=== PATIENT | male | born 1960 ===

== ENCOUNTER 2018-08-16 07:21 | Day surgery (SDC) | payer OTHER ==
[2018-08-15 12:13] VITALS: BMI 30.7
[2018-08-16] MEDS ORDERED: Lactated Ringer's 1,000 ML IV ONE (08:20)
[2018-08-16] MEDS ORDERED: Lidocaine 2% PF (10 ml) Amp ONE (08:49)
[2018-08-16] MEDS ORDERED: EPINEPHrine 1 mg/ml (1:1000) Inj ONE ×2 (08:50→16:50)
[2018-08-16] MEDS ORDERED: Bacitracin Ointment 30 GM TUBE ONE (08:51)
--- NOTE | 2018-08-16 09:44 | CP.SDSHP ---
Same Day Surgery H & P - History Proposed Procedure: Right shoulder arthroscopy Pre-Op Diagnosis: Right shoulder rotator cuff tear - Previous Medical/Surgical History Cardiac: Hypertension Pain: 6.Severe Pain Comments: Kidney stones Previous Surgical History: Kidney stone removal - Allergies Allergies: Allergies No Known Allergies Allergy (Verified 08/15/18 12:13) - Current Medications Current Medications: Aspirin, metoprolol - Physical Exam General Appearance: NAD Vital Signs: Vital Signs 08/16/18 08/16/18 08:07 08:17 Temperature 98.7 F Pulse Rate 51 L 51 L Respiratory 18 Rate Blood Pressure 131/78 O2 Sat by Pulse 98 Oximetry Mental Status: Alert & Oriented x3 Neuro: WNL Heart: WNL Lungs: WNL GI: WNL Social History: Alcohol (socially) - {Optional Preform as Required} Abdomen: WNL Integument: WNL Ortho: Other (Restricted ROM 2nd to pain, diffuse tenderness, gross neurovascularly intact, motor grossly intact, compartments soft NT) ENT: WNL - Impression Impression: Patient is a RHD 57M who presents for elective R shoulder arthroscopy. The patient has had chronic right shoulder pain for the past 2 years which has progressed and limited his daily activities such as lifting overhead and lifting object. He has failed conservative management and has elected for surgical intervention. Risks/benefits/alternatives were explained to the patient who agrees to proceed with above procedure. Pt. Evaluated Today:Candidate for Anesthesia & Procedure: Yes - Date & Time Date: 08/16/18 Time: 09:45 Short Stay Discharge - Short Stay Discharge Admitting Diagnosis/Reason for Visit: M75.101,M25.611,M75.31 Disposition: HOME/ ROUTINE Medications: oxyCODONE/Acetaminophen [Percocet 5/325 mg Tab] 1 - 2 ea PO Q4 PRN #30 tab PRN Reason: Pain, Moderate (4-7) Referrals: Rocky Tong III, MD [Primary Care Provider] -
[2018-08-16] MEDS ORDERED: Ropivacaine 0.5% 30ML IV ONE (11:08)
[2018-08-16] MEDS ORDERED: Rocuronium 10 mg/ml (5 ml) ONE (11:10)
[2018-08-16] MEDS ORDERED: Propofol 10 mg/ml Inj (20 ML) ONE (11:10)
[2018-08-16] MEDS ORDERED: Midazolam 2 MG/2 ML VIAL ONE (11:10)
[2018-08-16] MEDS ORDERED: Succinylcholine 200 mg/10 ml Inj IV ONE (11:10)
[2018-08-16] MEDS ORDERED: Neostigmine 1:1000 (1 mg/ml) Inj ONE (11:11)
[2018-08-16] MEDS ORDERED: Lidocaine 4% (Laryng-O-Jet) Kit MM ONE (11:11)
[2018-08-16] MEDS ORDERED: Lidocaine 2% MPF (5 ml) Inj ONE (13:21)
[2018-08-16] MEDS ORDERED: Oxycodone/Acetaminophen 5/325 mg Tab PO PRN (15:58)
[2018-08-16] MEDS ORDERED: Lactated Ringer's 1,000 ML IV SCH ×2 (16:00→19:15)
[2018-08-16] MEDS ORDERED: ePHEDrine 50 mg/ml Inj ONE (16:53)
[2018-08-16] MEDS ORDERED: Dexamethasone 4 mg/1 ml ONE (17:44)
[2018-08-16] MEDS ORDERED: Phenylephrine 10 mg/ml Inj ONE (17:47)
[2018-08-16] MEDS ORDERED: methylPREDNISolone Depo 80 mg/ml Inj IM ONE (18:30)
[2018-08-16] MEDS ORDERED: methylPREDNISolone Depo 80 mg/ml Inj ONE (18:32)
[2018-08-16] MEDS ORDERED: MethylPREDNISolone Depo 40 mg/ml Inj ONE (18:32)
[2018-08-16] MEDS ORDERED: Bacitracin OINT 15GM TOP ONE (18:50)
[2018-08-16] MEDS ORDERED: Dexamethasone 4 mg/1 ml IVP PRN (19:09)
[2018-08-16] MEDS ORDERED: DiphenhydrAMINE 50 mg/ml Inj IVP PRN (19:09)
--- NOTE | 2018-08-16 19:12 | PCM.ANESB1 ---
Interscalene Block - Brachial Plexus Date of Procedure: 08/16/18 Anesthesiologist: Thuan Bills Pre-Procedure Diagnosis: R shoulder rotator cuff tear Post-Procedure Diagnosis: R shoulder rotator cuff tear Procedure Performed: Interscalene Block of Brachial Plexus Right - Procedure Interscalene Block of Brachial Plexus: This procedure was explained to the patient that it is for post-operative pain management. Consent was obtained after a thorough discussion with the patient regarding the benefits and possible complications of local anesthetic block of the Brachial Plexus at the Interscalene area. The patient was brought to the Operating Room and standard monitors were applied. Time out was held with the circulating nurse to confirm the correct surgery and appropriate block. After applying Oxygen by nasal cannula and administering IV Sedation, the patient's head was gently rotated away from the right operative shoulder and the anterior scalene groove was carefully palpated. The ultrasound transducer was then applied to the skin in the transverse plane and the brachial plexus was visualized lateral to the carotid artery and in between the anterior and middle scalene muscles. After identification,the anterior lateral portion of the neck was prepped with Chloroprep and Lidocaine 1% was injected subcutaneously for topical analgesia. At this point, a # 22 gauge Stimuplex 2 inches insulated needle was inserted into the interscalene groove and directed in a caudal and midline direction. The needle was inserted lateral to the ultrasound transducer in-plane towards the brachial plexus in a [id number] direction. Needle advancement was performed carefully under direct ultrasound visualization. Nerve stimulator was used and twitched of the affected extremity including the hand brachialis muscles, biceps and the deltoid was obtained at a current of 0.4 MA. After repeated negative aspiration,20cc of 0.5% ropivacaine was injected in 5cc aliquots. Under ultrasound guidance the local anesthetics were observed surrounding the roots of the brachial plexus. The needle was removed intact and sterile dressing was applied. The patient had stable vital signs, was conscious and in no apparent distress. The patient tolerated the interscalene block of the bracheal plexus well with stable vital signs and was prepared for subsequent surgery.
--- NOTE | 2018-08-16 21:56 | PCM.SURG1 ---
Surgeon's Initial Post Op Note - Surgeon's Notes Surgeon: Ran Fuel Technician: WESLEY Hernandez Type of Anesthesia: General Endo, Block Regional Anesthesia Administered By: Dr Gavin Bills Pre-Operative Diagnosis: painful R shoulder- grade 3 Rotator cuff tear Operative Findings: grade3 Rotator cuff teR. TEAR glenoid labrum. rupture gbideps tendon. A/C joint arthritis. subacromial impingemnt. efgef7xehgg/bursitis subacromial space Post-Operative Diagnosis: as above Operation Performed: Primary [id number] gr 3 rotator cuff. repair slap lesion. biceps tenotomy. partial distal claviculectomy. partial acromioplasty. arthroscopic lysisi of adhesions in subacromial space Specimen/Specimens Removed: bine bursa cartilage synovium Estimated Blood Loss: EBL {In ML}: 15 Blood Products Given: N/A Drains Used: No Drains Post-Op Condition: Good Date of Surgery/Procedure: 08/16/18 Time of Surgery/Procedure: 17:25 (time in room/anesthesia indcution time)
[2018-08-16 23:53] VITALS: BP 125/72; PULSE 88; RESP 20; TEMP 97.4; O2SAT 93
--- NOTE | 2018-08-17 18:34 | OP ---
PROCEDURE DATE: 08/16/2018 LOCATION: [facility]. PREOPERATIVE DIAGNOSES: 1. Painful shoulder, right. 2. Grade 3 rotator cuff tear, right shoulder. OPERATIVE FINDINGS: 1. Grade 3 tear of right rotator cuff. 2. Tear of glenoid labrum extending anterior to posterior root of the biceps tendon. 3. Rupture of biceps tendon. 4. AC joint arthritis. 5. Subacromial impingement. 6. Adhesions and bursitis in the subacromial space. SURGEON: Rocky Tong MD [employer]ADING VICE PRESIDENT: BABAK Snyder, certified registered nursing [employer]. TYPE OF ANESTHESIA: General endotracheal anesthesia with regional block. POSTOPERATIVE DIAGNOSES: 1. Painful shoulder, right. 2. Grade 3 rotator cuff tear, right shoulder. OPERATIONS PERFORMED: 1. Primary repair of grade 3 rotator cuff. 2. Repair of SLAP lesion. 3. Biceps tenotomy. 4. Partial distal claviculectomy. 5. Partial acromioplasty. 6. Arthroscopic lysis of adhesions and bursectomy in the subacromial space. SPECIMENS REMOVED: Bone, bursa, cartilage and synovium. BLOOD LOSS: Approximately 15 mL. BLOOD PRODUCTS: No blood products given. DRAINS: No drains. POSTOPERATIVE CONDITION: Stable. TIME OF PROCEDURE: 17:25. OPERATIVE INDICATION: Cruz Morales is a 57-year-old gentleman who has had persistent right shoulder pain for a long period of time. The patient had got an opinion for surgery in [place], he ignored it. The patient presented to [place]. He lives in and works for a [employer] in [place]. He can no longer withstand the discomfort. He is having difficulty with sleep. He has been refractory to conservative approach consisting of intra-articular injection, activity modification and therapy. Pros, cons, risks and benefits of surgical approach were discussed. The possibility of mechanical failure, infection, thromboembolic disease, possibility of secondary or tertiary surgery was discussed. The patient can no longer withstand the discomfort and wished the surgery to be accomplished. Informed consent had been accomplished from the patient in the presence of the culturally competent lost charge card clerk. Pros, cons, risks and benefits were discussed. Possibility of mechanical failure, infection, thromboembolic disease, secondary or tertiary surgery was discussed. OPERATIVE PROCEDURE: After having obtained informed consent, after having identified side, site and procedure and a critical pause/time-out after the satisfactory induction of the anesthetic, the patient identified as Cruz Dorsey, is in modified cano chair position. The right upper extremity was prepped and free draped in usual fashion for upper extremity surgery. The Arthrex shoulder positioner was employed. It should be noted that again informed consent had been obtained from the patient in the presence of his Congolese-speaking daughter whose Congolese is perfect and she is the culturally competent lost charge card clerk. The possibility of stiffness, mechanical failure, infection, thromboembolic disease, possibility of secondary or tertiary surgery was discussed. The patient can no longer withstand the discomfort and wished the surgery to be accomplished. OPERATIVE PROCEDURE: After the satisfactory induction of general endotracheal anesthesia and regional block by Dr. Thuan Bills, after having obtained informed consent in the above fashion, after having identified side, site and procedure and a critical pause/time-out after the satisfactory induction of the anesthetic, the patient identified as Cruz Dorsey in the modified cano chair position. The right upper extremity was prepped and free draped in usual fashion for upper extremity surgery. Topographic anatomy of the shoulder was marked, spine of the scapula, the lateral aspect of the acromion and the coracoid process. The joint was insufflated with 10 mL of 1% lidocaine without epinephrine using #11 blade followed by spreading, followed by introduction of blunt trocar, the arthroscope was introduced. Examination of the joint commences. There is found to be a marked synovitis and with injury to the biceps tendon. Triangulation was accomplished using #18 gauge spinal needle followed by #11 blade followed by spreading and introduction of blunt trocar. With the arthroscope posteriorly, the Wissinger kenneth was placed anteriorly and the cannula was introduced. With the arthroscope posteriorly, the cannula having been introduced anteriorly and great care was taken to control the flow, an extensive synovectomy of the glenohumeral joint was accomplished. The patient has marked synovitis. There was found to be a complete tear of the glenoid labrum extending anterior to posterior and to the root of the biceps tendon. At this point in time, the biceps was found to be severely damaged. With the arthroscope posteriorly using the 5.5 arthroscopic shaver, a biceps tenotomy was accomplished. With the arthroscope posteriorly, biceps tenotomy having been accomplished, the biceps is tenotomized and the biceps tendon was carefully debrided. This having been accomplished, attention was turned to the glenoid labral tear. The interval between the glenoid labrum and the bony glenoid was developed. This having been accomplished, the Lasso was used to gather the nitinol wire anteriorly and this was brought out the anterior portal. Drilling was accomplished at approximately 1 o'clock on the glenoid clock face and the drilling having been accomplished, the anchor was loaded with FiberTape after the FiberTape had been passed around the labrum. Please refer to the video photographs. This having been accomplished, the anchor having been loaded, the anchor was impacted and the labral tear is repaired. Extensive debridement of the glenohumeral joint was accomplished. The biceps is tenotomized. Great care was taken to smooth the remainder of the glenoid labrum. This having been accomplished, the arm was placed carefully in dependency, the arthroscope was placed in the subacromial space and triangulation was accomplished using #18 gauge spinal needle followed by #11 blade followed by spreading with the arthroscope posteriorly. There was found to be an extensive amount of adhesions in the subacromial space. There was marked bursitis and marked adhesions. With the arthroscope posteriorly, the Passport was introduced to the lateral portal and aggressive synovectomy, bursectomy and debridement of the subacromial space using the arthroscopic shaver was accomplished. The arthroscopic shaver having been employed, the partial bursectomy and lysis of adhesions was accomplished in the subacromial space. This was completed with the arthroscopic wand. This having been accomplished with the arthroscope posteriorly, arthroscopic wand was placed laterally and the soft tissue on the undersurface of the acromion and distal aspect of the clavicle was carefully debrided. With the arthroscope posteriorly, the soft tissue on the undersurface of the acromion was debrided as well as the undersurface of the clavicle. With the arthroscope posteriorly, careful debridement of the subacromial space was accomplished. Extensive debridement of the subacromial space and lysis of adhesions was accomplished. With the arthroscope posteriorly, careful bursectomy and lysis of adhesions having been accomplished, there was found to be a complete grade 3 tear of the rotator cuff. Please refer to the photographs. The cuff grasper was placed and the cuff was mobilized with a periosteum elevator. Hemostasis was controlled using the arthroscopic wand. This having been accomplished with the arthroscope posteriorly, two sets of sutures were placed in the rotator cuff, one anteriorly in an inverted V type fashion. The sutures were deployed with the scorpion and brought out laterally through the Passport and a secondary simple suture was placed further medially and that was brought out as well. With the arm in abduction and internal rotation, the self-tapping anchor was loaded. With the arm in abduction and rotation, the rotator cuff was cinched down to the anchor. The anchor was implanted in the area of the footprint and using the , the peak anchor was introduced into the humeral head. The position was found to be excellent. The exact same procedure was followed for the inverted V type repair, which was placed more laterally. This having been accomplished, the anchor was placed in the lateral aspect of the footprint with the arm in abduction and internal rotation. The repair was found to be excellent. Extensive bursectomy and lysis of adhesions in the subacromial space continues. Bleeding points were controlled with the arthroscopic wand. At this point with the arthroscope posteriorly using the arthroscopic bur, a partial acromioplasty was accomplished. Great care was taken to continue to remove all irritative bursa and adhesions in the subacromial space. Partial acromioplasty was carefully accomplished. At this point in time, the arthroscope was transferred mid laterally and from the anterior portal using the arthroscopic bur, a partial distal claviculectomy was accomplished using the arthroscopic bur to include the articular cartilage and approximately the distal centimeter of the clavicle. The arthroscope was placed now back posteriorly. Bleeding points were controlled using the arthroscopic wand. Using the arthroscopic bur, a partial distal claviculectomy and debridement of the articular cartilage on the lateral aspect of the clavicle was accomplished. Partial acromioplasty was completed, partial distal claviculectomy having been completed, the wound was thoroughly irrigated. Bleeding points were controlled with the ArthroCare wand. Portals were closed with interrupted Vicryl and nylon. Intra-articular injection was offered of Depo-Medrol. Scalene block had been offered. Boni Wagner compression dressing was applied. Rocky Tong MD
== END 2018-08-17 03:19 | disposition home or self-care (01) ==
LOC: H.OPSURG 07:21 → H.MEDSURG1 20:19 → H.OPSURG 08-17 03:19
PROVIDERS: ATTEND Orthopaedic Surgery
DX: M75.41 Impingement syndrome of right shoulder (principal); M25.611 Stiffness of right shoulder, not elsewhere classified; M75.31 Calcific tendinitis of right shoulder; I10 Essential (primary) hypertension; G89.29 Other chronic pain; M75.51 Bursitis of right shoulder; M75.01 Adhesive capsulitis of right shoulder; M75.101 Unspecified rotator cuff tear or rupture of right shoulder, not specified as traumatic
CPT/HCPCS: 29824; 29825; 29826; 29827; 88305; C1713; J0171; J0330; J0690; J1040; J1100; J2001; J2250; J2370; J2405; J2704; J2710; J3010; J7030; J7120